=== PATIENT | male | born 1985 | race African-American/Black ===

== ENCOUNTER → 2017-11-22 | Outpatient (CLI) | payer BC | LOC: OD 13:22 | PROVIDERS: ATTEND Otolaryngology | DX: J30.9 Allergic rhinitis, unspecified (principal) | CPT/HCPCS: 36415; 82785; 86003 ==

== ENCOUNTER 2019-02-14 18:15 | Emergency (ER) | payer BC, OTHER ==
--- NOTE | 2019-02-14 19:04 | ER Document Report ---
ED Medical Screen (RME) - General Chief Complaint: Chest Tightness Stated Complaint: CHEST TIGHTNESS Time Seen by Provider: 02/14/19 18:56 Primary Care Provider: BRAYAN RAMOS DO [Primary Care Provider] - Follow up as needed Notes: Patient is a 34-year-old male with a history of hypertension who presents to the emergency department with a 2-day history of chest pain. Patient states that the discomfort feels like a tightness located in the center of his chest that is nonradiating. Patient states that has been intermittent over the past 2 days and that nothing makes the pain better or worse specifically. Patient denies shortness of breath, nausea, vomiting or diarrhea. Patient states he did see his primary care physician Dr. Hitchcock who stated to go to the emergency department if the pain persisted. Patient states he did go for a run today and was able to tolerate that without an increase in pain. TRAVEL OUTSIDE OF THE [place] IN LAST 30 DAYS: No - Related Data Allergies/Adverse Reactions: No Known Allergies Allergy (Verified 02/14/19 18:16) Past Medical History - Social History Frequency of alcohol use: None Drug Abuse: None - Past Medical History Cardiac Medical History: Reports: Hx Hypertension Renal/ Medical History: Denies: Hx Peritoneal Dialysis Past Surgical History: Reports: Hx Orthopedic Surgery - L knee surgery Physical Exam - Vital signs Vitals: Temp Pulse Resp BP Pulse Ox 98.2 F 81 18 133/78 H 96 02/14/19 18:25 02/14/19 18:25 02/14/19 18:25 02/14/19 18:25 02/14/19 18:25 - Respiratory Respiratory status: No respiratory distress Chest status: Nontender Breath sounds: Normal Chest palpation: Normal - Cardiovascular Rhythm: Regular Heart sounds: Normal auscultation, S1 appreciated, S2 appreciated Course - Re-evaluation Re-evalutation: 02/14/19 19:03 I have greeted and performed a rapid initial assessment of this patient. A comprehensive ED assessment and evaluation of the patient, analysis of test results and completion of the medical decision making process will be conducted by additional ED providers. - Vital Signs Vital signs: Temp Pulse Resp BP Pulse Ox 98.2 F 81 18 133/78 H 96 02/14/19 18:25 02/14/19 18:25 02/14/19 18:25 02/14/19 18:25 02/14/19 18:25 Doctor's Discharge - Discharge Referrals: BRAYAN RAMOS DO [Primary Care Provider] - Follow up as needed
[2019-02-14 19:24] LABS: ABSOLUTE EOSINOPHILS # (AUTO) 0.2 10^3/uL (0.0-0.6); ABSOLUTE LYMPHOCYTES (AUTO) 4.6 10^3/uL (0.5-4.7); ABSOLUTE MONOCYTES (AUTO) 0.9 10^3/uL (0.1-1.4); BASOPHILS % (AUTO) 0.3 % (0-2); EOSINOPHILS % (AUTO) 2.2 % (0-6); HEMATOCRIT 43.6 % (37.9-51.0); LYMPHOCYTES % (AUTO) 47.9 % (13-45); MEAN CORPUSCULAR HEMOGLOBIN 27.8 pg (27.0-33.4); MEAN CORPUSCULAR HGB CONC 34.5 g/dL (32.0-36.0); MEAN CORPUSCULAR VOLUME 80 fl (80-97); MONOCYTES % (AUTO) 8.9 % (3-13); PLATELET COUNT 259 10^3/uL (150-450); RED BLOOD COUNT 5.42 10^6/uL (4.35-5.55); RED CELL DISTRIBUTION WIDTH 12.4 % (11.5-14.0); SEGMENTED NEUTROPHILS % (AUTO) 40.7 % (42-78); TOTAL CELLS COUNTED % (AUTO) 100 %; WHITE BLOOD COUNT 9.7 10^3/uL (4.0-10.5)
[2019-02-14 19:41] LABS: ALBUMIN 4.8 g/dL (3.5-5.0); ALKALINE PHOSPHATASE 44 U/L (38-126); ANION GAP 9 (5-19); ASPARTATE AMINO TRANSFERASE 19 U/L (17-59); BILIRUBIN,DIRECT 0.2 mg/dL (0.0-0.4); BILIRUBIN,TOTAL 0.8 mg/dL (0.2-1.3); BLOOD UREA NITROGEN 11 mg/dL (7-20); CARBON DIOXIDE 29 mmol/L (22-30); CHLORIDE 102 mmol/L (98-107); GLUCOSE 106 mg/dL (75-110); TOTAL PROTEIN 7.6 g/dL (6.3-8.2)
--- NOTE | 2019-02-14 19:43 | RADIOLOGY REPORT (SQ) ---
EXAM DESCRIPTION: CHEST 2 VIEWS COMPLETED DATE/TIME: 02/14/2019 7:27 pm REASON FOR STUDY: chest pain COMPARISON: None. EXAM PARAMETERS: NUMBER OF VIEWS: two views TECHNIQUE: Digital Frontal and Lateral radiographic views of the chest acquired. RADIATION DOSE: NA LIMITATIONS: none FINDINGS: LUNGS AND PLEURA: No opacities, masses or pneumothorax. No pleural effusion. MEDIASTINUM AND HILAR STRUCTURES: No masses or contour abnormalities. HEART AND VASCULAR STRUCTURES: Heart normal size. No evidence for failure. BONES: No acute findings. HARDWARE: None in the chest. OTHER: No other significant finding. IMPRESSION: NO ACUTE RADIOGRAPHIC FINDING IN THE CHEST. TECHNICAL DOCUMENTATION: JOB ID: [id number] [employer]- All Rights Reserved Reading location - IP/workstation name: [email or web address]
[2019-02-14] MEDS ORDERED: ALPRAZOLAM 0.5 MG TABLET PO ONE (22:35)
--- NOTE | 2019-02-14 22:35 | ER Document Report ---
ED General - General Chief Complaint: Chest Tightness Stated Complaint: CHEST TIGHTNESS Time Seen by Provider: 02/14/19 18:56 Primary Care Provider: BRAYAN RAMOS DO [ASSOCIATE] - Follow up in 1 week TRAVEL OUTSIDE OF THE [place] IN LAST 30 DAYS: No - HPI Notes: Patient is a 34-year-old male with a history of hypertension who presents to the emergency department with a 2-day history of chest pain. Patient states that the discomfort feels like a tightness located in the center of his chest that is nonradiating. Patient states that has been intermittent over the past 2 days and that nothing makes the pain better or worse specifically. Patient denies shortness of breath, nausea, vomiting or diarrhea. Patient states he did see his primary care physician Dr. Hitchcock who stated to go to the emergency department if the pain persisted. Patient states he did go for a run today and was able to tolerate that without an increase in pain. Patient reports that the on Tuesday that he may have felt slightly stressed and it was out in the heat and got hot and sweaty while wearing a full suit. The patient reports he felt nauseated and vomited once after that but den ied having any chest pain until later in the evening at rest. The patient admits to anxiety recently and questions if the anxiety may be causing his discomfort. The patient reports no exertional discomfort, rather stating it is worse at rest. Family history no cardiac disease. Patient does have history of hypertension and takes lisinopril. Patient is a non-smoker. Patient denies any pleuritic chest discomfort. No cough, congestion, belching, abdominal pain, constipation, diarrhea, dysuria. - Related Data Allergies/Adverse Reactions: No Known Allergies Allergy (Verified 02/14/19 18:16) Past Medical History - General Information source: Patient - Social History Smoking Status: Never Smoker Frequency of alcohol use: None Drug Abuse: None Lives with: Family Family History: None Patient has suicidal ideation: No Patient has homicidal ideation: No - Past Medical History Cardiac Medical History: Reports: Hx Hypertension Renal/ Medical History: Denies: Hx Peritoneal Dialysis Past Surgical History: Reports: Hx Orthopedic Surgery - L knee surgery Review of Systems - Review of Systems -: Yes All other systems reviewed and negative Physical Exam - Vital signs Vitals: Temp Pulse Resp BP Pulse Ox 98.2 F 81 18 133/78 H 96 02/14/19 18:25 02/14/19 18:25 02/14/19 18:25 02/14/19 18:25 02/14/19 18:25 - Notes Notes: PHYSICAL EXAMINATION: GENERAL: Well-appearing, well-nourished and in no acute distress. HEAD: Atraumatic, normocephalic. EYES: Pupils equal round and reactive to light, extraocular movements intact, sclera anicteric, conjunctiva are normal. ENT: Nares patent, oropharynx clear without exudates. Moist mucous membranes. NECK: Normal range of motion, supple without lymphadenopathy LUNGS: Breath sounds clear to auscultation bilaterally and equal. No wheezes rales or rhonchi. HEART: Regular rate and rhythm without murmurs. Mildly reproducible anterior chest wall pain. ABDOMEN: Soft, nontender, nondistended abdomen. No guarding, no rebound. No masses appreciated. Negative Farr's. Musculoskeletal: Normal range of motion, no pitting or edema. No cyanosis. Ne gative Homans. No palpable cord. NEUROLOGICAL: Cranial nerves grossly intact. Normal speech, normal gait. Normal sensory, motor exams PSYCH: normal affect. Slightly anxious. SKIN: Warm, Dry, normal turgor, no rashes or lesions noted. Course - Re-evaluation Re-evalutation: 02/14/19 23:14 Patient initially was agreeable to taking Xanax, but then he stated he felt better and would feel more appropriate taking a mild muscle relaxer. The patient also reported that several years ago he had a panic attack and had received Xanax in the past. Patient is low risk stratification for iliac disease. There is no evidence for acute NV or ischemia or pneumonia or congestive heart failure or clinical suggestion for pulmonary embolus given that the discomfort goes away, sometimes with exercise. No evidence for anemia or diabetes or uncontrolled hypertension. - Vital Signs Vital signs: Temp Pulse Resp BP Pulse Ox 98.2 F 81 18 133/78 H 96 02/14/19 18:25 02/14/19 18:25 02/14/19 18:25 02/14/19 18:25 02/14/19 18:25 - Laboratory Result Diagrams: 02/14/19 19:08 02/14/19 19:08 Laboratory results interpreted by me: 02/14/19 19:08 Seg Neutrophils % 40.7 L Lymphocytes % 47.9 H - EKG Interpretation by Me EKG shows normal: Sinus rhythm Rate: Normal Additional EKG results interpreted by me: 02/14/19 23:01 EKG is interpreted by me showed normal sinus rhythm heart rate of 76. There is no gross evidence for acute NV or ischemia noted. No old EKG available for comparison. Discharge - Discharge Clinical Impression: Anxiety Chest pain Qualifiers: Chest pain type: unspecified Qualified Code(s): R07.9 - Chest pain, unspecified Condition: Stable Disposition: HOME, SELF-CARE Instructions: Anxiety ([facility]), Chest Pain of Unclear Cause ([facility]) Additional Instructions: If chest pain returns, then you need to follow-up with cardiology for stress testing and further evaluation. Prescriptions: Methocarbamol [Robaxin 500 mg Tablet] 500 mg PO Q6HP PRN #20 tablet PRN Reason: Alprazolam [Xanax 0.5 mg Tablet] 0.5 mg PO Q12HP PRN #14 tablet PRN Reason: Forms: Return to Work Referrals: BRAYAN RAMOS DO [ASSOCIATE] - Follow up in 1 week
[2019-02-14] MEDS ORDERED: IBUPROFEN 400 MG TABLET PO ONE (23:15)
[2019-02-14] MEDS ORDERED: METHOCARBAMOL 500 MG TABLET PO ONE (23:33)
[2019-02-14 23:40] VITALS: BP 139/77
--- NOTE | 2019-02-15 11:25 | EKG REPORT ---
SEVERITY:- NORMAL ECG - SINUS RHYTHM : Confirmed by: Dipak Molina 15-Feb-2019 11:25:05
== END 2019-02-14 23:40 | disposition home or self-care (01) ==
LOC: ER 18:15
DX: F41.9 Anxiety disorder, unspecified (principal); R07.9 Chest pain, unspecified; I10 Essential (primary) hypertension
CPT/HCPCS: 36415; 71046; 80053; 84484; 85025; 93005; 93010